=== PATIENT | female | born 1965 | race Caucasian/White ===

== ENCOUNTER 2020-02-16 14:34 | Emergency (ER) | payer OTHER ==
[2020-02-16 14:49] VITALS: TEMP 98.5
--- NOTE | 2020-02-16 15:02 | ED ---
Back Pain HPI - General Chief Complaint: Back Pain/Injury Stated Complaint: Back Pain Time Seen by Provider: 02/16/20 15:00 Source: patient, RN notes reviewed, old records reviewed Limitations: no limitations - History of Present Illness Initial Comments: This is a 55-year-old female DF for evaluation presented for evaluation regards to back pain acute on chronic back pain with no new trauma. This patient second ER evaluation for back pain no real help on first evaluation patient presents with persistent back pain today no neurological complaints no loss of bowel or bladder MD Complaint: back pain, back injury -: days(s) Similar Symptoms Previously: Yes Place: home Radiation: none Severity: severe (Iliolumbar) Severity scale (1-10): 10 Quality: sharp, aching Consistency: constant Improves With: none Worsens With: movement, walking Context: while lifting, turning/twisting, bending Associated Symptoms: denies other symptoms - Related Data Home Medications Medication Instructions Recorded Confirmed Cetirizine HCl [Zyrtec] 10 mg PO DAILY 07/23/15 07/23/15 Gabapentin [Neurontin] 400 mg PO TID 07/23/15 07/23/15 HYDROcodone/APAP 10-325MG [[place] 1 tab PO TID PRN 07/23/15 07/23/15 10-325] Multivit with Calcium,Iron,Min 1 tab PO DAILY 07/23/15 07/23/15 [Women's Daily Multivitamin] Previous Rx's Medication Instructions Recorded Benzonatate [Tessalon Perles] 100 mg PO TID #42 cap 07/29/15 Ipratropium/Albuterol Sulfate 2 puff INHALATION QID PRN #1 07/29/15 [Combivent Respimat Inhaler] inhaler Mometasone Inhalr 220 Mcg/Puff 2 puff INHALATION RT-BID #1 inhaler 07/29/15 [Asmanex] predniSONE 10 mg PO DIRECTED #40 tab 07/29/15 Melatonin 3 mg PO HS PRN #0 tab 07/30/15 Lisinopril-Hctz 10-12.5 mg 1 each PO DAILY #30 tab 02/16/20 [Zestoretic 10-12.5] Allergies Allergy/AdvReac Type Severity Reaction Status Date / Time Iodinated Contrast Media Allergy Anaphylaxis Verified 02/16/20 14:52 [Iodinated Contrast Media - IV Dye] Review of Systems ROS Statement: Those systems with pertinent positive or pertinent negative responses have been documented in the HPI. ROS Other: All systems not noted in ROS Statement are negative. Past Medical History Past Medical History: Hypertension, Thyroid Disorder Additional Past Medical History / Comment(s): 07/23/15 Pt presented to [facility] with persistent cough x 12 days with some chest discomfort. Pt was seen 07/16/15 at [facility] and a VQ scan showed low probability of PE. Pt was seen in outpt clinic this morning and sent to ER d/t elevated B/P. Pt is being admitted with clinical impression of ARDS, acute exacerbation of COPD, acute febrile illness, acute bronchospasm. Other HX: back injury shattered discs x 2 with nerve damage, chronic back pain, numbness and tingling to bilateral legs and feet, ulcerative colitis, thyroid issues, HTN without medication at this time, pt denies any lung disease. History of Any Multi-Drug Resistant Organisms: None Reported Past Surgical History: Section, Cholecystectomy, Hernia Repair, Orthopedic Surgery Additional Past Surgical History / Comment(s): x 3, incisional ventral hernia repair and omenectomy, L mastoid surgery, lymph node removed from under chin, R knee arthroscopy Past Anesthesia/Blood Transfusion Reactions: Motion Sickness Additional Past Anesthesia/Blood Transfusion Reaction / Comment(s): Pt has never received blood. Past Psychological History: Anxiety, Depression Past Alcohol Use History: Occasional Past Drug Use History: None Reported - Past Family History Father Family Medical History: Coronary Artery Disease (CAD) Additional Family Medical History / Comment(s): Father of aortic aneurysm at age 47 yrs. He also had mitral valve problem and low blood pressure. Mother Family Medical History: Coronary Artery Disease (CAD), CVA/TIA, Hypertension, Myocardial Infarction (SC) Additional Family Medical History / Comment(s): Mother at age 56yrs from SC's and CVA's General Exam Limitations: no limitations General appearance: alert, in no apparent distress Head exam: Present: atraumatic, normocephalic, normal inspection Eye exam: Present: normal appearance, PERRL, EOMI. Absent: scleral icterus, conjunctival injection, periorbital swelling ENT exam: Present: normal exam, mucous membranes moist Neck exam: Present: normal inspection. Absent: tenderness, meningismus, lymphadenopathy Respiratory exam: Present: normal lung sounds bilaterally. Absent: respiratory distress, wheezes, rales, rhonchi, stridor Cardiovascular Exam: Present: regular rate, normal rhythm, normal heart sounds. Absent: systolic murmur, diastolic murmur, rubs, gallop, clicks GI/Abdominal exam: Present: soft, normal bowel sounds. Absent: distended, tenderness, guarding, rebound, rigid Extremities exam: Present: normal inspection, full ROM, normal capillary refill. Absent: tenderness, pedal edema, joint swelling, calf tenderness Back exam: Present: normal inspection Neurological exam: Present: alert, oriented X3, CN II-XII intact Psychiatric exam: Present: normal affect, normal mood Skin exam: Present: warm, dry, intact, normal color. Absent: rash Course Vital Signs 02/16/20 02/16/20 14:45 16:21 Temperature 98.5 F Pulse Rate 102 H 105 H Respiratory 18 20 Rate Blood Pressure 165/102 172/121 O2 Sat by Pulse 98 96 Oximetry - Reevaluation(s) Reevaluation #1: 02/16/20 16:25 Medical records reviewed Reevaluation #2: 02/16/20 16:25 Pain is controlled Medical Decision Making - Medical Decision Making 55 female DF for evaluation presents today for evaluation of back pain acute on chronic back pain. CT is otherwise negative for new changes patient can be discharged - Radiology Data Radiology results: report reviewed (CT lumbar spine negative), image reviewed Disposition Clinical Impression: Mechanical back pain, Lumbar radiculopathy, Mid back pain Disposition: HOME SELF-CARE Condition: Good Instructions (If sedation given, give patient instructions): Acute Low Back Pain (ED) Prescriptions: Lisinopril-Hctz 10-12.5 mg [Zestoretic 10-12.5] 1 each PO DAILY #30 tab Is patient prescribed a controlled substance at d/c from ED?: No Referrals: Adrian Nguyen MD [Primary Care Provider] - 1-2 days
[2020-02-16] MEDS ORDERED: ETODOLAC 400 MG TAB PO STA (15:23)
[2020-02-16] MEDS ORDERED: diphenhydrAMINE 50 MG CAP PO STA (15:23)
[2020-02-16] MEDS ORDERED: traMADol 50 MG STARTER PACK 3 TAB BTL PO STA (15:23)
[2020-02-16] MEDS ORDERED: HYDROmorphone 1 MG/ML 1 ML SYRINGE IM STA (15:23)
[2020-02-16] MEDS ORDERED: LIDOCAINE 5% PATCH TOPICAL STA (15:40)
--- NOTE | 2020-02-16 16:14 | CT ---
EXAMINATION TYPE: CT lumbar spine wo con DATE OF EXAM: 02/16/2020 COMPARISON: None HISTORY: Low back pain with left leg weakness. CT DLP: 953.4 mGycm Automated exposure control for dose reduction was used. Lumbar vertebra have normal alignment. Disc spaces are fairly normal. Posterior elements are intact. Facet joints are intact. There is hypertrophic facet arthropathy at L4-5 and L5-S1. There is no compr ession fracture. There is no evidence of bony spinal stenosis. There is minimal lateral recess stenos is at L4-5 due to facet arthropathy. There is no lumbar paraspinal mass. There is minimal posterior d isc bulging at L4-5. The sacroiliac joints appear intact. Visualized sacrum is intact. IMPRESSION: Mild spondylotic changes and facet arthropathy. No fracture seen. No spinal stenosis.
[2020-02-16 16:23] VITALS: PULSE 105; RESP 20
[2020-02-16] MEDS ORDERED: lisinopriL 10 MG TAB PO STA (16:23)
[2020-02-16 17:01] VITALS: BP 175/111
[2020-02-17] MEDS ORDERED: LIDOCAINE 5% PATCH TOPICAL SCH (09:00)
== END 2020-02-16 17:01 | disposition home or self-care (01) ==
LOC: EC 14:34
DX: M54.16 Radiculopathy, lumbar region (principal); M54.6 Pain in thoracic spine; G89.29 Other chronic pain; F41.9 Anxiety disorder, unspecified; F32.9 Major depressive disorder, single episode, unspecified; Z91.041 Radiographic dye allergy status
CPT/HCPCS: 72131; 96372; 99284; J1170

== ENCOUNTER → 2023-07-29 | Outpatient (CLI) | payer OTHER ==
--- NOTE | 2023-08-01 20:31 | MM ---
Reason for Exam: Screening (asymptomatic). Last mammogram was performed 12 year(s) and 11 month(s) ago. Patient History: Menarche at age 13. First Full-Term at age 21. Postmenopausal. Sister had breast cancer, age 39. Risk Values: Carly 5 year model risk: 2.5%. NCI Lifetime model risk: 14.5%. Prior Study Comparison: No prior studies available for comparison. Tissue Density: The breast tissue is heterogeneously dense. This may lower the sensitivity of mammography. Findings: Analyzed By CAD. No significant mass, suspicious microcalcification, or other discrete abnormality is seen. Overall Assessment: Negative, BI-RAD 1 Management: Screening Mammogram of both breasts in 1 year. . Patient should continue monthly self-breast exams. A clinical breast exam by your physician is recommended on an annual basis. This exam should not preclude additional follow-up of suspicious palpable abnormalities. Note on Carly scores and lifetime risk: 1. A Carly score greater than 3% is considered moderate risk. If this is the case, consider specialist referral to assess eligibility for a risk reducing agent. 2. If overall lifetime risk for the development of breast cancer is 20% or higher, the patient may qualify for future screening with alternating mammogram and breast MRI. Electronically signed and approved by: Nile Slater M.D. Radiologist
== END | disposition home or self-care (01) ==
LOC: RADMAMWWP 09:24
PROVIDERS: ATTEND Family Medicine
DX: Z12.31 Encounter for screening mammogram for malignant neoplasm of breast (principal); Z80.3 Family history of malignant neoplasm of breast; Z78.0 Asymptomatic menopausal state
CPT/HCPCS: 77067